=== PATIENT | female | born 1950 | race African-American/Black ===

== ENCOUNTER → 2016-12-26 | Outpatient (CLI) | payer MEDICARE, OTHER ==
[~2016-12-26] MED LIST: APRACLONIDINE 1% 0.1 ML OPH ONE; HYDR-902 PO; PILOCARPINE 2% 15ML OPH ONE; PROPARACAINE 0.5% 15 ML OPH ONE
== END | disposition home or self-care (01) ==
LOC: RAD 11:06
PROVIDERS: ATTEND Ophthalmology
DX: H40.20X0 Unspecified primary angle-closure glaucoma, stage unspecified (principal)
CPT/HCPCS: 66761

== ENCOUNTER → 2017-01-11 | Outpatient (CLI) | payer MEDICARE, OTHER ==
[~2017-01-11] MED LIST changes: +APRACLONIDINE 1% 0.1 ML OPH LEFT EYE SCH; +OPHTHALMIC IRRIG SOLUTION 120 ML BOTH EYES SCH; +PILOCARPINE 2% 15ML OPH LEFT EYE SCH; -PILOCARPINE 2% 15ML OPH ONE; +PROPARACAINE 0.5% 15 ML OPH BOTH EYES SCH
== END | disposition home or self-care (01) ==
LOC: RAD 10:34
PROVIDERS: ATTEND Ophthalmology
DX: H40.20X0 Unspecified primary angle-closure glaucoma, stage unspecified (principal)

== ENCOUNTER 2018-08-31 03:16 | Emergency (ER) | payer OTHER ==
[~2018-08-31] VITALS: Ht 157.5 cm; Wt 72.5 kg
[~2018-08-31 03:16] MED LIST changes: -APRACLONIDINE 1% 0.1 ML OPH LEFT EYE SCH; -APRACLONIDINE 1% 0.1 ML OPH ONE; +HYDR-3980 PO; -HYDR-902 PO; -OPHTHALMIC IRRIG SOLUTION 120 ML BOTH EYES SCH; -PILOCARPINE 2% 15ML OPH LEFT EYE SCH; -PROPARACAINE 0.5% 15 ML OPH BOTH EYES SCH; -PROPARACAINE 0.5% 15 ML OPH ONE
[2018-08-31 03:20] VITALS: BP 182/77; PULSE 57; RESP 18; Ht 157.5 cm; Wt 72.5 kg
[2018-08-31] MEDS ORDERED: HYDR-3980 PO (03:58)
[2018-08-31] MEDS ORDERED: HYDROCODONE/APAP (10/325) TAB PO ONE (04:00)
--- NOTE | 2018-08-31 04:38 | ERD ---
ER Documentation Chief Complaint Chief Complaint BACK PAIN, NEEDS PAIN MEDS UNTIL SHE CAN SEE PAIN DOC ROS All systems reviewed and are negative except as per history of present illness. Medications Home Meds Active Scripts Hydrocodone/Acetaminophen ([place] 10-325 Tablet) 1 Each Tablet, 1 EACH PO Q6H PRN for PAIN, #5 TAB Prov:JULIANA WOODS DO 08/31/18 Hydrocodone/Acetaminophen ([place] 10-325 Tablet) 1 Each Tablet, 1 TAB PO Q6H PRN for PAIN, #12 TAB Prov:SYL KNIGHT PA-C 12/14/15 Allergies Allergies: Coded Allergies: prochlorperazine (Verified Allergy, Unknown, 12/14/15) PMhx/Soc History of Surgery: Yes (Appendectomy;Exploratory Laparoscopy) Anesthesia Reaction: No Hx Neurological Disorder: No Hx Respiratory Disorders: No Hx Cardiac Disorders: Yes (HTN) Hx Psychiatric Problems: No Hx Miscellaneous Medical Probl: Yes (Chronic Back Pain(Herniated Disks)) Hx Alcohol Use: No Hx Substance Use: No Hx Tobacco Use: No Smoking Status: Never smoker Physical Exam Vitals Vital Signs Date Temp Pulse Resp B/P (MAP) Pulse Ox O2 O2 Flow FiO2 Time Delivery Rate 08/31/18 97.9 57 18 182/77 98 03:20 (112) Physical Exam Const: No acute distress Head: Atraumatic Eyes: Normal Conjunctiva ENT: Normal External Ears, Nose and Mouth. Neck: Full range of motion. No meningismus. Resp: Clear to auscultation bilaterally Cardio: Regular rate and rhythm, no murmurs Abd: Soft, non tender, non distended. Normal bowel sounds Skin: No petechiae or rashes Back: No midline or flank tenderness Ext: No cyanosis, or edema Neur: Awake and alert Psych: Normal Mood and Affect Results 24 hrs Current Medications Medications Dose Sig/Yahir Start Time Status Last (Trade) Ordered Route PRN Stop Time Admin Dose Reason Admin 1 tab ONCE ONCE 08/31/18 DC 08/31/18 Acetaminophen PO 04:00 08/31/18 03:55 / 04:01 Hydrocodone Bitart ([place] (10/325)) Departure Diagnosis: Primary Impression: Low back pain Chronicity: chronic Back pain laterality: bilateral Sciatica presence: unspecified whether sciatica present Qualified Codes: M54.5 - Low back pain; G89.29 - Other chronic pain Condition: Fair Patient Instructions: Back Care Tips Referrals: [facility] YOU HAVE RECEIVED A MEDICAL SCREENING EXAM AND THE RESULTS INDICATE THAT YOU DO NOT HAVE A CONDITION THAT REQUIRES URGENT TREATMENT IN THE EMERGENCY DEPARTMENT. FURTHER EVALUATION AND TREATMENT OF YOUR CONDITION CAN WAIT UNTIL YOU ARE SEEN IN YOUR DOCTORS OFFICE WITHIN THE NEXT 1-2 DAYS. IT IS YOUR RESPONSIBILITY TO MAKE AN APPOINTMENT FOR FOLOW-UP CARE. IF YOU HAVE A PRIMARY DOCTOR --you should call your primary doctor and schedule an appointment IF YOU DO NOT HAVE A PRIMARY DOCTOR YOU CAN CALL OUR PHYSICIAN REFERRAL HOTLINE AT IF YOU CAN NOT AFFORD TO SEE A PHYSICIAN YOU CAN CHOSE FROM THE FOLLOWING [facility] [address] [facility]. [facility] [address] [facility]. [facility] [address] [facility] [facility] [address] [facility]. [facility] [address] [facility]. [facility]. [address] Additional Instructions: Call your primary care doctor TOMORROW for an appointment during the next 1-2 days.See the doctor sooner or return here if your condition worsens before your appointment time. Follow up with pain management JULIANA WOODS DO Aug 31, 2018 04:38
== END 2018-08-31 04:50 | disposition home or self-care (01) ==
LOC: FTE 03:16
DX: M54.5 Low back pain (principal); I10 Essential (primary) hypertension
CPT/HCPCS: 99283